=== PATIENT | female | born 1970 | race Caucasian/White ===

== ENCOUNTER → 2017-06-09 | Outpatient (CLI) | payer BC ==
[2017-06-09 09:02] LABS: Urine RBC None Seen /hpf (0 - 4)
[2017-06-09 09:22] LABS: Basophils # (auto) 0 uL; Basophils % (auto) 0.6 % (0.0-2.0); CONDITION Y; Eosinophils # (auto) 0 uL; Eosinophils % (auto) 0.4 % (0.0-7.0); Hematocrit 40.2 % (36.0-46.0); Hemoglobin 13.3 g/dL (12.2-16.2); Lymphocytes # (auto) 1.8 uL; Lymphocytes % (auto) 33.8 % (10.0-50.0); Mean Corpuscular Hemoglobin 28.5 pg (28.0-32.0); Mean Corpuscular Volume 86.2 fL (80.0-100.0); Mean Platelet Volume 9.8 fL (7.4-10.4); Monocytes # (auto) 0.4 uL; Neutrophils % (auto) 57.2 % (37.0-80.0); Platelet Count (auto) 343 10^3/uL (140-450); Red Cell Distribution Width 14.2 % (11.6-16.0); White Blood Cell 5.2 10^3/uL (4.4-10.8)
[2017-06-09 09:38] LABS: Bilirubin, Total 0.2 mg/dL (0.2-1.0); Total Protein 7.6 g/dL (6.4-8.2); Urine Bilirubin Negative (Negative); Urine Blood Negative /uL (Negative); Urine Color Colorless (Yellow); Urine Glucose 2+ mg/dL (Normal); Urine Ketone Negative (Negative); Urine Nitrite Negative (Negative); Urine Squamous Epithelial Cell FEW /hpf (<5); Urine Urobilinogen Normal (Negative); Urine pH 6.5 (5.0-8.0)
== END | disposition home or self-care (01) ==
LOC: LAB 08:18
DX: I10 Essential (primary) hypertension (principal); E10.9 Type 1 diabetes mellitus without complications; E78.00 Pure hypercholesterolemia, unspecified; E03.9 Hypothyroidism, unspecified; D64.9 Anemia, unspecified
CPT/HCPCS: 36415; 80053; 80061; 81001; 82043; 83036; 84443; 85025

== ENCOUNTER → 2019-02-26 | Outpatient (CLI) | payer BC ==
[2019-02-26 13:08] LABS: Basophils # (auto) 0 uL; Basophils % (auto) 0.4 % (0.0-2.0); Eosinophils # (auto) 0 uL; Eosinophils % (auto) 0.2 % (0.0-7.0); Hematocrit 46.7 % (36.0-46.0); Hemoglobin 15.4 g/dL (12.2-16.2); Lymphocytes # (auto) 1.5 uL; Lymphocytes % (auto) 18.3 % (10.0-50.0); Mean Corpuscular Hemoglobin 28.8 pg (28.0-32.0); Mean Corpuscular Volume 87.2 fL (80.0-100.0); Monocytes # (auto) 0.8 uL; Monocytes % (auto) 9.3 % (0.0-12.0); Neutrophils # (auto) 5.9 uL; Neutrophils % (auto) 71.8 % (37.0-80.0); Nucleated Red Blood Cells % 0.1 %; Platelet Count (auto) 273 10^3/uL (140-450); Red Blood Cells 5.36 10^6/uL (4.0-5.20); Red Cell Distribution Width 13.7 % (11.8-14.3); White Blood Cell 8.2 10^3/uL (4.4-10.8)
[2019-02-26 14:26] LABS: Potassium 3.6 mmol/L (3.5-5.1)
[2019-02-26 14:27] LABS: Albumin 4.2 g/dL (3.4-5.0); BUN/Creatinine Ratio 16.5; Bilirubin, Total 0.4 mg/dL (0.2-1.0); Calcium 9.6 mg/dL (8.5-10.1)
[2019-02-26 15:45] LABS: Urine WBC None Seen /hpf (0 - 5)
[2019-02-26 15:51] LABS: Urine Bacteria FEW /hpf (None Seen); Urine Blood Negative /uL (Negative)
== END | disposition home or self-care (01) ==
LOC: LAB 12:43
PROVIDERS: ATTEND Physician Assistant
DX: E11.21 Type 2 diabetes mellitus with diabetic nephropathy (principal); E11.22 Type 2 diabetes mellitus with diabetic chronic kidney disease; N18.3 Chronic kidney disease, stage 3 (moderate); E78.49 Other hyperlipidemia; E55.9 Vitamin D deficiency, unspecified
CPT/HCPCS: 36415; 80053; 80061; 81001; 82306; 83036; 85025

== ENCOUNTER → 2019-03-14 | Outpatient (CLI) | payer BC ==
[~2019-03-14] VITALS: Ht 167.6 cm; Wt 73.5 kg
[~2019-03-14] MED LIST: ADENOSINE 62 MG in GIVE UN-DILUTED 0 ML IV STA
== END | disposition home or self-care (01) ==
LOC: XY 08:09
PROVIDERS: ATTEND Internal Medicine
DX: I10 Essential (primary) hypertension (principal); E11.9 Type 2 diabetes mellitus without complications; E78.5 Hyperlipidemia, unspecified; E78.1 Pure hyperglyceridemia
CPT/HCPCS: 78452; 93017; A9500; J0153

== ENCOUNTER → 2019-03-15 | Outpatient (CLI) | payer BC | END | disposition home or self-care (01) | LOC: XYW 08:15 | PROVIDERS: ATTEND Internal Medicine | DX: R07.89 Other chest pain (principal) | CPT/HCPCS: 93306 ==

== ENCOUNTER → 2019-04-26 | Day surgery (SDC) | payer BC ==
[2019-04-24 12:20] LABS: Basophils # (auto) 0.1 uL; Basophils % (auto) 0.8 % (0.0-2.0); Eosinophils # (auto) 0 uL; Eosinophils % (auto) 0.5 % (0.0-7.0); Hematocrit 44.5 % (36.0-46.0); Hemoglobin 14.9 g/dL (12.2-16.2); Lymphocytes # (auto) 1.6 uL; Lymphocytes % (auto) 24.2 % (10.0-50.0); Mean Corpuscular Hgb Conc. 33.5 g/dL (32.0-36.0); Mean Corpuscular Volume 86.6 fL (80.0-100.0); Monocytes # (auto) 0.5 uL; Monocytes % (auto) 7.5 % (0.0-12.0); Neutrophils # (auto) 4.4 uL; Platelet Count (auto) 225 10^3/uL (140-450); Red Blood Cells 5.14 10^6/uL (4.0-5.20); Red Cell Distribution Width 14.9 % (11.8-14.3); White Blood Cell 6.6 10^3/uL (4.4-10.8)
[2019-04-24 12:53] LABS: INR < 0.93 (0.9-1.15); Partial Thromboplastin Time 24.2 sec (23.64-32.05)
[2019-04-24 13:23] LABS: Albumin 4.2 g/dL (3.4-5.0); Potassium 4.3 mmol/L (3.5-5.1)
[2019-04-24 13:26] LABS: BUN/Creatinine Ratio 16.7; Bilirubin, Total 0.4 mg/dL (0.2-1.0); Total Protein 8.1 g/dL (6.4-8.2)
[~2019-04-26] VITALS: Ht 167.6 cm; Wt 76.2 kg
[~2019-04-26] MED LIST changes: -ADENOSINE 62 MG in GIVE UN-DILUTED 0 ML IV STA; +ANGIOMAX 250 MG VIAL IV ONE; +ASPI-404 PO; +HEPARIN SODIUM (PORCINE) 5000 UNITS/ML 1ML VIAL ONE; +HYDR12.56 PO; +INSLANTI SC; +IOHEXOL 350 MG/ML 100ML IJ ONE; +LIDOCAINE 2%HCL (LOCAL ANESTH.) INJ 20ML MDV ONE; +LISI40TA PO; +METF-370 PO; +METO-169 PO; +MIDAZOLAM HCL 1MG/1ML-2 ML VIAL ONE; +RANO500T2 PO; +ROSU20TA14 PO; +SODIUM CHL 0.9% 0 ML ONE; +VERAPAMIL 2.5MG/ML INJ 2ML VIAL IV ONE; +fentaNYL CITRATE 100 MCG/2 ML VL ONE
== END | disposition home or self-care (01) ==
LOC: CATH 07:53
PROVIDERS: ATTEND Internal Medicine
DX: I20.8 Other forms of angina pectoris (principal); I12.9 Hypertensive chronic kidney disease with stage 1 through stage 4 chronic kidney disease, or unspecified chronic kidney disease; E11.22 Type 2 diabetes mellitus with diabetic chronic kidney disease; N18.3 Chronic kidney disease, stage 3 (moderate); E05.80 Other thyrotoxicosis without thyrotoxic crisis or storm; E66.3 Overweight; E78.5 Hyperlipidemia, unspecified; Z79.899 Other long term (current) drug therapy; Z88.2 Allergy status to sulfonamides; Z88.8 Allergy status to other drugs, medicaments and biological substances; Z79.84 Long term (current) use of oral hypoglycemic drugs; Z79.82 Long term (current) use of aspirin; Z98.890 Other specified postprocedural states; Z68.29 Body mass index [BMI] 29.0-29.9, adult
CPT/HCPCS: 36415; 80053; 84702; 85025; 85610; 85730; 93458; C1769; C1887; C1894; J1644; J2250; J3010; J7030; Q9967; 99152

== ENCOUNTER → 2019-11-22 | Outpatient (CLI) | payer BC ==
[~2019-11-22] MED LIST changes: -ANGIOMAX 250 MG VIAL IV ONE; -HEPARIN SODIUM (PORCINE) 5000 UNITS/ML 1ML VIAL ONE; -IOHEXOL 350 MG/ML 100ML IJ ONE; -LIDOCAINE 2%HCL (LOCAL ANESTH.) INJ 20ML MDV ONE; -MIDAZOLAM HCL 1MG/1ML-2 ML VIAL ONE; -SODIUM CHL 0.9% 0 ML ONE; -VERAPAMIL 2.5MG/ML INJ 2ML VIAL IV ONE; -fentaNYL CITRATE 100 MCG/2 ML VL ONE
[2019-11-22 12:53] LABS: Potassium 3.7 mmol/L (3.5-5.1)
[2019-11-22 13:01] LABS: BUN/Creatinine Ratio 25.3; Bilirubin, Total 0.3 mg/dL (0.2-1.0); Calcium 9.8 mg/dL (8.5-10.1); Total Protein 7.7 g/dL (6.4-8.2)
== END | disposition home or self-care (01) ==
LOC: LAB 10:59
DX: E10.65 Type 1 diabetes mellitus with hyperglycemia (principal)
CPT/HCPCS: 36415; 80053; 80061; 82043; 83036

== ENCOUNTER 2024-03-26 16:59 | Inpatient (IN) | payer BC ==
[~2024-03-26] VITALS: Ht 167.6 cm; Wt 78.0 kg
[~2024-03-26 16:59] MED LIST changes: -ASPI-404 PO; +ASPI-543 PO; -HYDR12.56 PO; +HYDR12.59 PO; -LISI40TA PO; +LISI40TA16 PO; -METO-169 PO; +METO-289 PO
[2024-03-26 18:48] LABS: Basophils # (auto) 0 10 ^3/uL (0-0.2); Basophils % (auto) 0.1 % (0.0-2.0); Eosinophils # (auto) 0 10 ^3/uL (0-0.8); Eosinophils % (auto) 0.2 % (0.0-7.0); Hematocrit 43.4 % (36.0-46.0); Hemoglobin 14.4 g/dL (12.2-16.2); Lymphocytes # (auto) 1.6 10 ^3/uL (0.4-5.4); Lymphocytes % (auto) 30.5 % (10.0-50.0); Mean Corpuscular Hgb Conc. 33.1 g/dL (32.0-36.0); Mean Corpuscular Volume 84.7 fL (80.0-100.0); Monocytes # (auto) 0.4 10 ^3/uL (0-1.3); Monocytes % (auto) 8.5 % (0.0-12.0); Neutrophils # (auto) 3.2 10 ^3/uL (1.6-8.6); Neutrophils % (auto) 60.7 % (37.0-80.0); Nucleated Red Blood Cells % 0.2 %; Red Blood Cells 5.13 10^6/uL (4.0-5.20); Red Cell Distribution Width 14.6 % (11.8-14.3); White Blood Cell 5.2 10^3/uL (4.4-10.8)
[2024-03-26 18:53] LABS: Chloride 93 mmol/L (98-107); Potassium 4.5 mmol/L (3.5-5.1); Sodium 131 mmol/L (136-145)
[2024-03-26 18:54] LABS: Anion Gap 7 (5-15); Carbon Dioxide 31 mmol/L (20-30)
[2024-03-26] MEDS: MECLIZINE HCL 25 MG TAB PO ONE (18:56)
[2024-03-26 18:59] LABS: Glucose 213 mg/dL (74-106)
[2024-03-26 19:00] LABS: BUN/Creatinine Ratio 11.8 (10.0-20.0); Blood Urea Nitrogen 30 mg/dL (9-23)
[2024-03-26 19:07] LABS: Calcium 13.6 mg/dL (8.5-10.1)
[2024-03-26 19:19] LABS: Urine Bacteria None Seen /hpf (None Seen)
[2024-03-26 19:41] LABS: Urine Blood Negative /uL (Negative); Urine Clarity Clear (Clear); Urine Color Colorless (Yellow); Urine Protein, UAD Negative (Negative); Urine Specific Gravity 1.006 (1.001-1.035); Urine Urobilinogen Normal (Negative); Urine WBC 4 /hpf (0 - 5); Urine pH 7.5 (5.0-9.0)
[2024-03-26 21:19] LABS: Albumin 5.2 g/dL (3.2-4.8); Bilirubin, Direct 0.1 mg/dL (<0.3)
[2024-03-26 21:20] LABS: Bilirubin, Total 0.4 mg/dL (0.2-1.0); Total Protein 7.9 g/dL (5.7-8.2)
[2024-03-26] MEDS ORDERED: DOCUSATE SOD 100 MG CAP PO PRN (21:30)
[2024-03-26] MEDS ORDERED: MORPHINE SULFATE INJ 2 MG/ml SYRG IV PRN (21:30)
[2024-03-26] MEDS ORDERED: ACETAMINOPHEN 325 MG TAB PO PRN (21:30)
[2024-03-26] MEDS ORDERED: DEXTROSE (50%) 50ML SYRG IV PRN (21:30)
[2024-03-26] MEDS ORDERED: ONDANSETRON HCL 4 MG/2 ML VIAL IV PRN (21:30)
[2024-03-26] MEDS: InsuLIN REG 1unit/0.01ml Soln (100units/ml) SC SCH (22:00)
[2024-03-26] MEDS: SODIUM CHLOR 0.9% PF (SALINE LOCK) 10ML VIAL/SYR IV SCH (22:00)
[2024-03-26] MEDS: ACCU-CHEK COMFORT CURVE STRIP VI SCH (22:00)
[2024-03-26] MEDS: SODIUM CHLORIDE 0.9% 1,000 ML IV ONE (23:11)
[2024-03-26] MEDS: FUROSEMIDE 20 MG/2 ML VIAL IV ONE (23:53)
[2024-03-26] MEDS: cefTRIAXone 1GM/50ML D5W 50 ML IV ONE (23:53)
[2024-03-26] MEDS: SODIUM CHLORIDE 0.9% 1,000 ML IV SCH (23:55)
[2024-03-27] VITALS (7 sets, daily range): BP systolic 97–152; BP diastolic 50–70; PULSE 66–91; RESP 14–18; TEMP 97.6–98.3; O2SAT 92–98
[2024-03-27] MEDS: InsuLIN REG 1unit/0.01ml Soln (100units/ml) SC SCH (06:30)
[2024-03-27 07:00] LABS: Basophils # (auto) 0 10 ^3/uL (0-0.2); Basophils % (auto) 0.3 % (0.0-2.0); Eosinophils # (auto) 0 10 ^3/uL (0-0.8); Eosinophils % (auto) 0.1 % (0.0-7.0); Hematocrit 38.1 % (36.0-46.0); Hemoglobin 12.9 g/dL (12.2-16.2); Lymphocytes # (auto) 1.5 10 ^3/uL (0.4-5.4); Lymphocytes % (auto) 31.5 % (10.0-50.0); Mean Corpuscular Hemoglobin 28.5 pg (28.0-32.0); Mean Corpuscular Hgb Conc. 33.9 g/dL (32.0-36.0); Mean Corpuscular Volume 84.1 fL (80.0-100.0); Monocytes # (auto) 0.5 10 ^3/uL (0-1.3); Neutrophils # (auto) 2.7 10 ^3/uL (1.6-8.6); Neutrophils % (auto) 57.1 % (37.0-80.0); Red Blood Cells 4.53 10^6/uL (4.0-5.20); Red Cell Distribution Width 13.9 % (11.8-14.3); White Blood Cell 4.7 10^3/uL (4.4-10.8)
[2024-03-27 07:23] LABS: Albumin 4.3 g/dL (3.2-4.8); Alkaline Phosphatase 76 U/L (46-116); Anion Gap 8 (5-15); BUN/Creatinine Ratio 14.2 (10.0-20.0); Blood Urea Nitrogen 29 mg/dL (9-23); Calcium 11.4 mg/dL (8.5-10.1); Carbon Dioxide 25 mmol/L (20-30); Chloride 101 mmol/L (98-107); Glucose 229 mg/dL (74-106); Potassium 3.8 mmol/L (3.5-5.1); Sodium 134 mmol/L (136-145)
[2024-03-27 07:24] LABS: Aspartate Aminotransferase < 8 U/L (13-40); Bilirubin, Total 0.3 mg/dL (0.2-1.0)
[2024-03-27 07:26] LABS: Alanine Aminotransferase < 9 U/L (7-40)
[2024-03-27] MEDS: cefTRIAXone 1GM/50ML D5W 50 ML IV SCH (09:56)
[2024-03-27] MEDS ORDERED: LORazepam 2MG/ML-1ML VIAL IV PRN (23:45)
[2024-03-28] VITALS (7 sets, daily range): BP systolic 112–172; BP diastolic 54–67; PULSE 84–91; RESP 16–20; TEMP 97.5–98.4; O2SAT 95–99
[2024-03-28 07:17] LABS: Anion Gap 5 (5-15); Carbon Dioxide 26 mmol/L (20-30); Chloride 109 mmol/L (98-107); Potassium 3.9 mmol/L (3.5-5.1); Sodium 140 mmol/L (136-145)
[2024-03-28 07:23] LABS: BUN/Creatinine Ratio 16.9 (10.0-20.0); Blood Urea Nitrogen 23 mg/dL (9-23); Glucose 188 mg/dL (74-106)
[2024-03-28 08:06] LABS: Free Thyroxine Index 2.6 (1.2-4.9); Thyroxine (T4) 9.6 ug/dL (4.5-12.0)
[2024-03-28 08:06] LABS: Immunoglobulin A 219 mg/dL (87-352); Immunoglobulin G, Serum 1029 mg/dL (586-1602); Immunoglobulin M 79 mg/dL (26-217)
[2024-03-28 12:07] LABS: Albumin 3.4 g/dL (2.9-4.4); Alpha-1-Globulin 0.2 g/dL (0.0-0.4); Alpha-2-Globulin 0.8 g/dL (0.4-1.0); Gamma Globulin 1.1 g/dL (0.4-1.8); Globulin Total 3.3 g/dL (2.2-3.9); Protein Total Serum 6.7 g/dL (6.0-8.5)
[2024-03-28] MEDS: SODIUM CHLORIDE 0.9% 1,000 ML IV SCH (13:00)
[2024-03-29 00:32] VITALS: BP 149/77; PULSE 89; RESP 20; TEMP 98.1; O2SAT 97
[2024-03-29 05:00] VITALS: BP 121/63; PULSE 79; RESP 18; TEMP 98.1; O2SAT 98
[2024-03-29 06:51] LABS: Chloride 112 mmol/L (98-107); Potassium 3.9 mmol/L (3.5-5.1); Sodium 141 mmol/L (136-145)
[2024-03-29 06:52] LABS: Anion Gap 6 (5-15); Calcium 10.1 mg/dL (8.7-10.4); Carbon Dioxide 23 mmol/L (20-30)
[2024-03-29 06:57] LABS: BUN/Creatinine Ratio 17.5 (10.0-20.0); Blood Urea Nitrogen 18 mg/dL (9-23); Glucose 180 mg/dL (74-106)
[2024-03-29 08:00] VITALS: PULSE 84; RESP 18; O2SAT 96
[2024-03-29 08:06] LABS: AFP Serum Tumor Marker <1.8 ng/mL (0.0-9.2); Cancer Antigen (CA) 125 8.5 U/mL (0.0-38.1)
[2024-03-29 09:00] VITALS: BP 129/85; PULSE 89; RESP 18; TEMP 97.8; O2SAT 99
[2024-03-29] MEDS ORDERED: AUG875T PO (12:21)
[2024-03-29 13:00] VITALS: BP 161/74; PULSE 100; RESP 18; TEMP 97.6; O2SAT 97
[2024-03-29 15:33] VITALS: BP 144/77; PULSE 100; RESP 18; TEMP 97.6; O2SAT 97
== END 2024-03-29 16:00 | disposition home or self-care (01) | DRG 153 ==
LOC: EEVIPCON 16:59 → ER 16:59 → OVERFLOW 21:28 → EAST 03-27 03:51
PROVIDERS: ADMIT Nurse Practitioner Family; ATTEND Internal Medicine Geriatric Medicine
DX: H70.001 Acute mastoiditis without complications, right ear (principal); N17.9 Acute kidney failure, unspecified; N39.0 Urinary tract infection, site not specified; E83.52 Hypercalcemia; I12.9 Hypertensive chronic kidney disease with stage 1 through stage 4 chronic kidney disease, or unspecified chronic kidney disease; E11.22 Type 2 diabetes mellitus with diabetic chronic kidney disease; N18.2 Chronic kidney disease, stage 2 (mild); K52.9 Noninfective gastroenteritis and colitis, unspecified; E78.5 Hyperlipidemia, unspecified; K80.20 Calculus of gallbladder without cholecystitis without obstruction; E04.1 Nontoxic single thyroid nodule; E86.9 Volume depletion, unspecified; Z88.6 Allergy status to analgesic agent; Z92.3 Personal history of irradiation; Z82.49 Family history of ischemic heart disease and other diseases of the circulatory system; Z83.3 Family history of diabetes mellitus; Z79.4 Long term (current) use of insulin
CPT/HCPCS: 36415; 70450; 70551; 71046; 71250; 74176; 76536; 78306; 80048; 80053; 80076; 81001; 82105; 82306; 82378; 82784; 82962; 83036; 83880; 83970; 84100; 84155; 84165; 84443; 84484; 85025; 86301; 86304; 86334; 93005; 96365; 96375; G0378; J1815

== ENCOUNTER → 2024-04-25 | Outpatient (CLI) | payer BC ==
[~2024-04-25] MED LIST changes: +AUG875T PO
== END | disposition home or self-care (01) ==
LOC: US 10:43
PROVIDERS: ATTEND Internal Medicine
DX: E04.1 Nontoxic single thyroid nodule (principal); Z98.891 History of uterine scar from previous surgery; Z82.49 Family history of ischemic heart disease and other diseases of the circulatory system
CPT/HCPCS: 10005; 76942

== ENCOUNTER → 2024-05-13 | Outpatient (CLI) | payer BC ==
[2024-05-13 15:38] LABS: Alanine Aminotransferase 36 U/L (7-40); Albumin 4.7 g/dL (3.2-4.8); Alkaline Phosphatase 89 U/L (46-116); Anion Gap 4 (5-15); Aspartate Aminotransferase 22 U/L (13-40); BUN/Creatinine Ratio 31.8 (10.0-20.0); Blood Urea Nitrogen 34 mg/dL (9-23); Calcium 10.5 mg/dL (8.7-10.4); Carbon Dioxide 32 mmol/L (20-30); Chloride 100 mmol/L (98-107); Glucose 146 mg/dL (74-106); Potassium 3.8 mmol/L (3.5-5.1); Sodium 136 mmol/L (136-145)
[2024-05-13 15:39] LABS: Bilirubin, Total 0.4 mg/dL (0.2-1.0); Total Protein 7.2 g/dL (5.7-8.2)
== END | disposition home or self-care (01) ==
LOC: LAB 15:01
PROVIDERS: ATTEND Internal Medicine
DX: E11.9 Type 2 diabetes mellitus without complications (principal); I10 Essential (primary) hypertension; E03.9 Hypothyroidism, unspecified
CPT/HCPCS: 36415; 80053; 83970

== ENCOUNTER → 2024-08-14 | Outpatient (CLI) | payer BC ==
[2024-08-14 13:17] LABS: Alanine Aminotransferase 29 U/L (7-40); Alkaline Phosphatase 83 U/L (46-116); Calcium 10.5 mg/dL (8.7-10.4); Chloride 99 mmol/L (98-107); Triglycerides 126 mg/dL (< 150)
[2024-08-14 13:18] LABS: Albumin 4.5 g/dL (3.2-4.8); Anion Gap 4 (5-15); Aspartate Aminotransferase 19 U/L (13-40); BUN/Creatinine Ratio 22.3 (10.0-20.0); Bilirubin, Total 0.2 mg/dL (0.2-1.0); Blood Urea Nitrogen 25 mg/dL (9-23); Carbon Dioxide 32 mmol/L (20-31); Cholesterol 164 mg/dL (< 200); Glucose 75 mg/dL (74-106); HDL Cholesterol 69 mg/dL (40-59); LDL Cholesterol 77 mg/dL (< 100); Sodium 135 mmol/L (136-145); Total Protein 7.3 g/dL (5.7-8.2)
[2024-08-14 14:05] LABS: Creatinine, Urine 10.72 mg/dL (30.0-125.0)
[2024-08-14 14:08] LABS: Micro Albumin < 3.0 mg/L (<30.0)
== END | disposition home or self-care (01) ==
LOC: LAB 12:06
PROVIDERS: ATTEND Internal Medicine
DX: I10 Essential (primary) hypertension (principal); E11.9 Type 2 diabetes mellitus without complications; E04.1 Nontoxic single thyroid nodule; E83.52 Hypercalcemia
CPT/HCPCS: 36415; 80053; 80061; 82043; 82570; 82607; 83036; 84443

== ENCOUNTER 2024-11-30 16:04 | Inpatient (IN) | payer BC ==
[~2024-11-30] VITALS: Ht 167.6 cm; Wt 83.1 kg
--- NOTE | 2024-11-30 16:43 | ED.PDOC ---
Eye-HPI HPI Comments Initial Vital Signs: Temp : 97.9F BP: 189/91 HR: 96 RR: 16 SpO2: 98% Past Medical History: DM, HLD, HTN, CKF, Mastoiditis, Acoustic Neuroma Past Surgical History: Rt sided brain surgery, Rt ear surgery Social History: Denies smoking, ETOH, or drug use. Medications: No medications. Allergies: Acetaminophen, Hydrocodone, Sulfa Antibiotics HPI: Poor Historian. 53-year-old female presents to emergency department for acute and chronic headache worse in the last two days. She points over her right side of her headache around her right ear. She also noticed some right ear pain in some right ear discharge. She has history of mastoiditis in the past and is concerned that this might be a recurrent condition. She also has history of acoustic neuroma status post craniotomy many years ago. Patient had some mild lightheadedness. Denies any other acute symptoms. REVIEW OF SYSTEMS: CONSTITUTIONAL: Denies acute: fever, diaphoresis, chills, generalized weakness. HEAD: Denies acute: photophobia Eyes: Denies acute: Double vision, vision loss, eye pain, eye discharge. EARS: Denies acute: tinnitus, hearing loss, THROAT: Denies acute: sore throat, swelling, difficulty swallowing , pain with swallo wing, change in voice. NECK: Denies acute: neck pain, neck swelling, stiff neck. HEART: Denies acute : chest pain, palpitations, LUNGS: Denies acute: SOB, wheezing, cough, hemoptysis ABDOMEN: Denies acute: abdominal pain, Nausea, Vomiting, diarrhea, melena , hematemesis, hematochezia SKIN: Denies acute: rash, redness, lesions, itchiness. EXTREMITIES: Denies acute: calf pain, numbness, tingling, weakness, denies pain in extremity. Denies acute: Low back pain. Neuro: Denies acute: focal neurological deficit, motor or sensory focal neurological deficit, tremors, seizure like activity, confusion, change in mental status, loss of bowel or bladder function, cauda equina like symptoms. : Denies acute: dysuria, hematuria, flank pain, increase in urinary frequency. PSYCH: Denies acute: hallucination, suicidal ideation, homicidal ideation. FEMALE: Denies acute: abnormal vaginal bleeding, foul odor, unusual discharge. PHYSICAL EXAM: General: no acute distress, awake and alert. Head: normocephalic, atraumatic. Neck: supple, trachea is midline, no swelling. Throat: Normal phonation. Eyes:, no erythema, no purulent discharge, no proptosis, no icterus. Heart: regular rate, regular rhythm, no significant murmur appreciated. Lungs: no apparent respiratory distress, Able to speak in full sentences. No wheezing, no rhonchi, no crackles. No stridors Clear to auscultation bilaterally. Abdomen: non tender to palpation, non distended, soft, no guarding, no rebound, + bowel sounds. Neuro: Awake, Alert, oriented to name, self, situation, follows commands GCS=15. Speech is normal. Skin: no petechia, no purpura, no cyanosis, non-pale, not jaundice. Lower extremities: --no - Pitting edema no deformity, no focal swelling, no calf TTP. Makes eye contact. moves all four extremities. Face: no apparent facial droop. Ambulating in the ED independently. Ears: Left normal appearing TM . Right tympanic membrane appears moist with possible discharge. Palpation of bilateral mastoid that is not reveal tenderness to palpation however there is some mild swelling behind the earlobe on the right ear. The area is somewhat tender to palpation. PERRLA, EOM-I CN 2-12 are grossly intact, No nystagmus. No nuchal rigidity, Kernig's sign, Brudzinski's sign, no meningeal signs. ED COURSE: Chief Complaint: Headache Time Seen by MD: 16:42 Primary Care Provider: RAYMOND Reviewed Notes: Medications, Allergies Allergies: Coded Allergies: Acetaminophen (Verified Allergy, Unknown, 03/14/19) Hydrocodone (Verified Allergy, Unknown, 04/25/19) Sulfa Antibiotics (Verified Allergy, Unknown, 03/26/24) Home Meds Active Scripts Amoxicillin & Pot Clavulanate (AUGMENTIN TABLET) 875 Mg Tb, 875 MG PO BID for 10 Days, #20 TAB Prov:CRYSTAL VALLE MD 03/29/24 Reported Medications Ranolazine (Ranexa) 500 Mg Tab, 500 MG PO BID, TAB 04/25/19 Metoprolol Succinate (Metoprolol Succinate Er) 50 Mg Tab, 50 MG PO BID for 30 Days, MG 04/25/19 Metformin Hydrochloride (Metformin Hcl) 500 Mg Tab, 500 MG PO IBID for 30 Days, MG 04/25/19 Lisinopril (Lisinopril) 40 Mg Tab, 40 MG PO QPM for 30 Days, MG 04/25/19 Insulin Glargine (Lantus) 100 Unit/Ml Inj, 20 UNIT SC QPM, INJ 04/25/19 Insulin Glargine (Lantus) 100 Unit/Ml Inj, 30 UNIT SC QAM, INJ 04/25/19 Hydrochlorothiazide (Hydrochlorothiazide) 12.5 Mg Cap, 12.5 MG PO BID for 30 Days, MG 04/25/19 Rosuvastatin Calcium (Crestor) 20 Mg Tab, 1 TAB PO QPM, #30 TAB 5 Refills 04/25/19 Aspirin (Aspir-Low) 81 Mg Tab, 81 MG PO DAILY for 30 Days, MG 04/25/19 Information Source: Patient Mode of Arrival: Ambulatory Was a procedure done? Was a procedure done?: No EENT DIFF Eye: N/A Ear: Abrasion, Cerumen Impaction, Foreign Body, Otitis Externa, Barotrauma, Otitis Media, Perforation, Dental, Pharyngitis, Sinusitis, TMJ Syndrome, Other (Mastoiditis, neoplasm,) X-Ray, Labs, Meds, VS Vital Signs Date Time Temp Pulse Resp B/P (MAP) Pulse Ox O2 Delivery O2 Flow Rate FiO2 11/30/24 20:43 97.7 95 18 200/86 (124) 98 97.7 11/30/24 20:36 200/86 11/30/24 17:57 98.2 90 20 170/82 (111) 97 98.2 11/30/24 17:56 170/82 11/30/24 17:19 Room Air* 0 21 11/30/24 17:18 94 20 182/76 (111) 96 11/30/24 16:59 182/76 11/30/24 16:25 97.9 96 16 189/91 (123) 98 Lab Test 11/30/24 20:17 11/30/24 20:06 11/30/24 16:50 Range/Units POC Glucose 391 H 70-106 mg/dl Sodium Level 137 135 L 136-145 mmol/L Potassium Level 4.3 4.5 3.5-5.1 mmol/L Chloride Level 99 96 L 98-107 mmol/L Carbon Dioxide Level 28 30 20-31 mmol/L Anion Gap 10 9 5-15 Blood Urea Nitrogen 43 H 43 H 9-23 mg/dL Creatinine 1.88 H 2.10 H 0.550-1.02 mg/dL Glomerular Filtration Rate Calc 31 27 >90 mL/min BUN/Creatinine Ratio 22.9 H 20.5 H 10.0-20.0 Serum Glucose 368 H 436 *H 74-106 mg/dL Calcium Level 10.7 H 10.9 H 8.7-10.4 mg/dL Total Bilirubin 0.5 0.4 0.2-1.0 mg/dL Aspartate Amino Transferase (AST) 15 18 13-40 U/L Alanine Aminotransferase (ALT) 30 32 7-40 U/L Alkaline Phosphatase 133 H 136 H 46-116 U/L Total Protein 7.9 8.0 5.7-8.2 g/dL Albumin 5.2 H 5.3 H 3.2-4.8 g/dL White Blood Count 5.2 4.4-10.8 10^3/uL Red Blood Count 4.62 4.0-5.20 10^6/uL Hemoglobin 12.9 12.2-16.2 g/dL Hematocrit 39.1 36.0-46.0 % Mean Corpuscular Volume 84.5 80.0-100.0 fL Mean Corpuscular Hemoglobin 28.0 28.0-32.0 pg Mean Corpuscular Hemoglobin Concent 33.1 32.0-36.0 g/dL Red Cell Distribution Width 14.7 H 11.8-14.3 % Platelet Count 248 140-450 10^3/uL Mean Platelet Volume 9.5 6.9-10.8 fL Neutrophils (%) (Auto) 62.1 37.0-80.0 % Lymphocytes (%) (Auto) 25.7 10.0-50.0 % Monocytes (%) (Auto) 12.1 H 0.0-12.0 % Eosinophils (%) (Auto) 0.0 0.0-7.0 % Basophils (%) (Auto) 0.1 0.0-2.0 % Neutrophils # (Auto) 3.3 1.6-8.6 10 ^3/uL Lymphocytes # (Auto) 1.3 0.4-5.4 10 ^3/uL Monocytes # (Auto) 0.6 0-1.3 10 ^3/uL Eosinophils # (Auto) 0 0-0.8 10 ^3/uL Basophils # (Auto) 0 0-0.2 10 ^3/uL Nucleated Red Blood Cells 0.0 % Erythrocyte Sedimentation Rate 12 0-20 mm/hr Lactic Acid Level 1.7 0.4-2.0 mmol/L C-Reactive Protein High Sensitivity 0.26 <1.0 mg/dL Current Medications Medications (Trade) Dose Ordered Sig/Dinorah Route Start Time Stop Time Status Last Admin Nitroglycerin (Ntrostat Sublingual) 0.4 mg ONCE ONCE SL 11/30/24 16:45 11/30/24 16:46 DC 11/30/24 16:59 Piperacillin Sod/ Tazobactam Sod 100 ml @ 33.333 mls/ hr ONCE ONCE IV 11/30/24 16:45 11/30/24 19:44 DC 11/30/24 16:59 Sodium Chloride 1,000 ml @ 1,000 mls/hr Q1H ONCE IV 11/30/24 19:00 11/30/24 19:59 DC 11/30/24 20:27 Hydralazine HCl (Apresoline Injection) 10 mg Q6HP PRN IV 11/30/24 19:30 11/30/24 20:36 Diagnostic Test (Pha) (Accu-Chek Comfort Curve T) 1 strip IQ4HR 11/30/24 20:00 11/30/24 20:25 Insulin Human Regular (InsuLIN R) IQ4HR SC 11/30/24 20:00 11/30/24 20:26 [place] [id number] Ph: [phone] DIAGNOSTIC IMAGING Diagnostic Imaging Report : [id number] Signed PATIENT: ROMEO CHOWDARY ACCT: [id number] UNIT: [id number] : 1970 LOC: ER ROOM / BED: / AGE / SEX: 53 / F ADM STATUS: REG ER SERVICE 1630 ORDERING PHYSICIAN: HOMA ROWAN DO PROCEDURE(s): HDWCT - HEAD CONTRAST ONLY REASON: R ear pain, discharge, headache ORDER NUMBER(s): [id number], ACCESSION NUMBER(s): [id number] EXAM: CT HEAD CONTRAST ONLY INDICATION: R ear pain, discharge, headache TECHNIQUE: CT of the head without intravenous contrast. Radiation Dose Information: CT Dose: CTDI volume is 55.75 mGy. Dose-length pro duct is 987.22 mGy*cm Omnipaque 300: 50 mL The dose indicators for CT are the volume Computed Tomography (CT) Dose Index (CTDIvol) and the Dose Length Product (DLP), and are measured in units of mGy and mGy-cm, respectively. These indicators are not patient dose, but values generated from the CT scanner acquisition factors. The report includes radiation exposure data for exposures received during this examination. COMPARISON: CT HEAD WITHOUT CONTRAST on DOS: 03/26/24 FINDINGS: There is no evidence of acute intracranial hemorrhage, extra-axial collection, mass effect, midline shift, herniation or hydrocephalus. The ventricles, sulci and cisterns are age appropriate. The farris-white differentiation is intact. Patchy periventricular and subcortical white matter hypoattenuation is nonspecific but may be related to small vessel ischemic disease. The visualized paranasal sinuses and postop changes right mastoids with collection of gas and fluid. This appears unchanged from 03/26/2024. There appears to be closure device over the osteotomy site. Findings of air-fluid level or unchanged also from MRI 03/28/2024. The surrounding soft tissues and osseous structures are unremarkable. IMPRESSION: 1. Right mastoidectomy. Air-fluid level within surgical site. These findings are unchanged from 03/26/2024 and 03/28/2024. Correlated for expected changes in surgical site versus possible infection. ATED BY: SYL CHEW Jr., DO DICTATED DATE/TIME: 11/30/242149 SIGNED BY: SYL CHEW Jr., SIGNED DATE/TIME: 11/30/242149 CC: [place] [id number] Ph: [phone] DIAGNOSTIC IMAGING Diagnostic Imaging Report : [id number] Signed PATIENT: ROMEO CHOWDARY ACCT: [id number] UNIT: [id number] : 1970 LOC: ER ROOM / BED: / AGE / SEX: 53 / F ADM STATUS: REG ER SERVICE 02 ORDERING PHYSICIAN: HOMA ROWAN DO PROCEDURE(s): IAC W - INTERNAL AUDITORY CANAL WITH REASON: r ear pain/discharge h/o mastoiditis. ORDER NUMBER(s): [id number], ACCESSION NUMBER(s): [id number] INDICATION: r ear pain/discharge h/o mastoiditis. EXAM DATE: 11/30/2024 09:12 PM COMPARISON: 03/26/2024 TECHNIQUE: CT of the IAC without intravenous contrast. RADIATION DOSE: CTDIvol: 74.57 mGy, DLP: 880.2 mGy*cm FINDINGS: Right: Redemonstration of postsurgical changes of canal wall up mastoidectomy with air fluid level within the right mastoid area of postsurgical changes . There appears to be postsurgical changes of the right internal auditory canal with postsurgical changes of the semicircular canals and retroauricular cranioplasty. There is opacification of the remaining mastoid air cells. Partial opacification of the right middle ear. There is mucosal thickening of the external auditory canal with thickening of the right tympanic membrane. There is limited evaluation of the middle ear ossicles. There is dehiscence of the sigmoid plate. Left: The external auditory canal appears intact. The middle ear cavity is clear. The ossicular chain appears intact. The facial nerve describes a normal course. No inner ear abnormality is identified. The tegmen appears intact. The semicircular canals appear covered by bone. The mastoid air cells are well aerated and pneumatized. Minimal mucoperiosteal thickening of the left maxillary sinus with bubbly secretion within the left sphenoid sinus. No enhancing masses are visualized wi thin the partially visualized brain. IMPRESSION: Redemonstration of postsurgical changes of the right mastoid, and inner ear with air-fluid levels within the right mastoid and opacification of the remainder of the right mastoid air cells. There is interval development of partial opacification of the right middle ear. Findings are consistent with otomastoiditis. ATED BY: TRINI WOOTEN DO DICTATED DATE/TIME: 11/30/242202 SIGNED BY: TRINI WOOTEN DO SIGNED DATE/TIME: 11/30/242202 CC: Time of 1ST Reevaluation: 17:42 Reevaluation 1ST: Unchanged Patient Education/Counseling: Diagnosis, Treatment Family Education/Counseling: No Family Present Comments Patient presented with the above HPI.--ear pain/headache----workup was initiated. patient was found with the above mentioned diagnosis. the following medications were ordered: please refer to order lists of meds and tests obtained by myself Dr. Rowan. Patient ED course and VS have been stabilized. Patient has been reassessed in the ED and remained in a stable condition. Pertinent incidental findings were discussed with the patient and/or family. Patient/family voices understanding and is agreeable with plan. Patient has been observed in the ED adequate length of time to insure improvement/stability. Escalation of care considered: Consideration of escalation to observation or admission Patient was ADMITTED to the medicine team for further evaluation and treatment of their presentation. Rule out mastoiditis versus other etiologies. All the reports of any imaging studies that were ordered by myself were reviewed by myself. Departure 1 Departure Time of Disposition: 18:53 Impression: Primary Impression: Right ear pain Additional Impressions: Infection of right ear Acute renal insufficiency Hyperglycemia Mastoiditis of right side Disposition: ADMITTED INPATIENT Admit to: [facility] Condition: Guarded Discharged With: Self Critical Care Note Critical Care Time?: No Heart Score Heart Score: Heart Score Response (Comments) Value History N/A 0 EKG N/A 0 Age N/A 0 Risk Factors N/A 0 Troponin N/A 0 Total 0 I personally scribed for HOMA ROWAN DO ([email or web address]) on 11/30/24 at 16:43. Electronically submitted by Daniel Rios ([email or web address]). I personally scribed for HOMA ROWAN DO ([email or web address]) on 11/30/24 at 16:54. Electronically submitted by Daniel Rios ([email or web address]). I personally scribed for HOMA ROWAN DO ([email or web address]) on 11/30/24 at 17:20. Electronically submitted by Daniel Rios ([email or web address]). HOMA ROWAN DO Nov 30, 2024 16:43
[2024-11-30] MEDS ORDERED: VANCOMYCIN PER PHARMACY 0 MG IV SCH (16:45)
[2024-11-30] MEDS: PIPERACILLIN-TAZOB 3.375GM 100 ML IV ONE (16:59)
[2024-11-30] MEDS: NITROGLYCERIN 0.4 MG SL TAB SL ONE (16:59)
[2024-11-30 17:25] LABS: Basophils # (auto) 0 10 ^3/uL (0-0.2); Basophils % (auto) 0.1 % (0.0-2.0); Eosinophils # (auto) 0 10 ^3/uL (0-0.8); Hematocrit 39.1 % (36.0-46.0); Hemoglobin 12.9 g/dL (12.2-16.2); Lymphocytes # (auto) 1.3 10 ^3/uL (0.4-5.4); Lymphocytes % (auto) 25.7 % (10.0-50.0); Mean Corpuscular Hgb Conc. 33.1 g/dL (32.0-36.0); Mean Corpuscular Volume 84.5 fL (80.0-100.0); Monocytes # (auto) 0.6 10 ^3/uL (0-1.3); Monocytes % (auto) 12.1 % (0.0-12.0); Neutrophils # (auto) 3.3 10 ^3/uL (1.6-8.6); Neutrophils % (auto) 62.1 % (37.0-80.0); Platelet Count (auto) 248 10^3/uL (140-450); Red Blood Cells 4.62 10^6/uL (4.0-5.20); Red Cell Distribution Width 14.7 % (11.8-14.3); White Blood Cell 5.2 10^3/uL (4.4-10.8)
[2024-11-30 17:44] LABS: Alanine Aminotransferase 32 U/L (7-40); Anion Gap 9 (5-15); Aspartate Aminotransferase 18 U/L (13-40); BUN/Creatinine Ratio 20.5 (10.0-20.0); CRP High Sensitivity 0.26 mg/dL (<1.0); Carbon Dioxide 30 mmol/L (20-31); Potassium 4.5 mmol/L (3.5-5.1)
[2024-11-30 17:45] LABS: Bilirubin, Total 0.4 mg/dL (0.2-1.0)
[2024-11-30 17:47] LABS: Albumin 5.3 g/dL (3.2-4.8); Alkaline Phosphatase 136 U/L (46-116); Blood Urea Nitrogen 43 mg/dL (9-23); Calcium 10.9 mg/dL (8.7-10.4); Chloride 96 mmol/L (98-107); Sodium 135 mmol/L (136-145)
[2024-11-30 17:49] LABS: Glucose 436 mg/dL (74-106)
[2024-11-30 18:07] LABS: Erythrocyte Sedimentation Rate 12 mm/hr (0-20)
[2024-11-30] MEDS ORDERED: MORPHINE SULFATE INJ 2 MG/ml SYRG IV PRN ×2 (19:30→21:30)
[2024-11-30] MEDS ORDERED: ONDANSETRON HCL 4 MG/2 ML VIAL IV PRN (19:30)
[2024-11-30] MEDS ORDERED: DEXTROSE (50%) 50ML SYRG IV PRN (19:30)
[2024-11-30] MEDS ORDERED: DOCUSATE SOD 100 MG CAP PO PRN (19:30)
[2024-11-30] MEDS: ACCU-CHEK COMFORT CURVE STRIP VI SCH (20:25)
[2024-11-30] MEDS: InsuLIN REG 1unit/0.01ml Soln (100units/ml) SC SCH (20:26)
[2024-11-30] MEDS: SODIUM CHLORIDE 0.9% 1,000 ML IV ONE (20:27)
[2024-11-30 20:34] LABS: Alanine Aminotransferase 30 U/L (7-40); Anion Gap 10 (5-15); Aspartate Aminotransferase 15 U/L (13-40); BUN/Creatinine Ratio 22.9 (10.0-20.0); Carbon Dioxide 28 mmol/L (20-31); Chloride 99 mmol/L (98-107); Potassium 4.3 mmol/L (3.5-5.1); Sodium 137 mmol/L (136-145)
[2024-11-30 20:35] LABS: Bilirubin, Total 0.5 mg/dL (0.2-1.0); Total Protein 7.9 g/dL (5.7-8.2)
[2024-11-30] MEDS: hydrALAZINE HCL 20 MG/ML VL IV PRN (20:36)
[2024-11-30 20:46] LABS: Albumin 5.2 g/dL (3.2-4.8); Alkaline Phosphatase 133 U/L (46-116); Blood Urea Nitrogen 43 mg/dL (9-23); Calcium 10.7 mg/dL (8.7-10.4); Glucose 368 mg/dL (74-106)
--- NOTE | 2024-11-30 21:24 | DVHHP2 ---
History of Present Illness Reason for Visit: Infection of right ear History of Present Illness Patient is a 53-year-old female with multiple past medical history including DM, HLD, hypertension, CKF, and mastoiditis who presented to [facility] ED with complaint of headache for the past 2 days. Patient reports experiencing right pain with discharge, mild headedness, getting worse that prompted this visit. Patient was seen and evaluated in the ED, laboratory data shows WBC 5.2, platelets 248, sodium 135, potassium 4.5, BUN 43, creatinine 2.10, GFR 27, glucose 436, albumin 5.3, blood pressure 189/91 trending down to 148/75, heart rate 90, temperature 98.2 F, O2 saturation 97% on room air. Head CT revealing right mastoidectomy, air-fluid level within surgical site, findings unchanged from 03/26/2024-03/28/2024, correlated for expected changes in surgical site versus possible infection. Internal auditory canal biopsy CT revealing redemonstration of postsurgical changes of the right mastoid and inner ear with air-fluid levels within the right mastoid and opacification of the remainder of the right mastoid cells, there is internal development of partial opacification of the right middle ear consistent with otomastoiditis, recommending ENT evaluation. Patient was started on IV antibiotic regimen Zosyn, please see medication orders section in the computer. On my assessment, patient denies chest pain, no headache, no dizziness, no diaphoresis, no shortness of breaths, no nausea, no vomiting, no fever, no chills. Dr. Rowan will like patient to be admitted for further evaluation and medical management. Past Medical History DM, HLD, HTN, CKF, Mastoiditis, Acoustic Neuroma Past Surgical History Right sided brain surgery, Rt ear surgery Family History Reviewed, noncontributory to the management of this case. Past Social History The patient lives at home, denies smoking, alcohol or illicit drugs abuse. Review of Systems Constitutional: No: Fever, Chills, Sweats, Weakness, Malaise, Other Eyes: No: Pain, Vision change, Conjunctivae inflammation, Eyelid inflammation, Other, Redness ENT: Ear pain; No: Ear discharge, Nose pain, Nose discharge, Nose congestion, Mouth pain, Mouth swelling, Throat pain, Throat swelling, Other Respiratory: No: Cough, Dry, Shortness of breath, SOB with excertion, Wheezing, Hemoptysis, Pleuritic Pain, Sputum, Wheezing, Other Cardiovascular: No: Chest Pain, Palpitations, Orthopnea, Paroxysmal Noc. Dyspnea, Edema, Lt Headedness, Other Gastrointestinal: No: Nausea, Vomiting, Abdominal Pain, Diarrhea, Constipation, Melena, Hematochezia, Other Genitourinary: No Dysuria, No Frequency, No Incontinence, No Hematuria, No Retention, No Other Musculoskeletal: No: other, neck pain, shoulder pain, arm pain, back pain, hand pain, leg pain, foot pain Skin: No: Rash, Lesions, Jaundice, Bruising, Other Neurological: Other (Headache); No: Weakness, Numbness, Incoordination, Change in speech, Confusion, Seizures Allergies: Coded Allergies: Acetaminophen (Verified Allergy, Unknown, 03/14/19) Hydrocodone (Verified Allergy, Unknown, 04/25/19) Sulfa Antibiotics (Verified Allergy, Unknown, 03/26/24) Medications Current Medications Medications Dose Ordered Sig/Dinorah Route Start Time Stop Time Status Last Admin Dose Admin Vancomycin HCl 0 ml @ 0 mls/hr UD IV 11/30/24 16:45 UNV Aspirin 81 mg DAILY PO 12/01/24 10:00 Ibuprofen 600 mg Q6HP PRN PO 11/30/24 19:30 Atorvastatin Calcium 10 mg HS PO 11/30/24 22:00 Metoprolol Tartrate 50 mg BID PO 11/30/24 22:00 Hydralazine HCl 10 mg Q6HP PRN IV 11/30/24 19:30 11/30/24 20:36 10 MG Diagnostic Test (Pha) 1 strip IQ4HR 11/30/24 20:00 11/30/24 20:25 1 STRIP Insulin Human Regular IQ4HR SC 11/30/24 20:00 11/30/24 20:26 15 UNITS Dextrose 50 ml UD PRN IV 11/30/24 19:30 Sodium Chloride 1,000 ml @ 60 mls/hr [id number] IV 11/30/24 19:30 Ondansetron HCl 4 mg Q4HP PRN IV 11/30/24 19:30 Docusate Sodium 100 mg BIDPRN PRN PO 11/30/24 19:30 Morphine Sulfate 2 mg Q4HPRN PRN IV 11/30/24 19:30 Exam Vital Signs Vital Signs Date Time Temp Pulse Resp B/P (MAP) Pulse Ox O2 Delivery O2 Flow Rate FiO2 11/30/24 20:43 97.7 95 18 200/86 (124) 98 97.7 11/30/24 17:19 Room Air* 0 21 General Appearance: Alert, Oriented X3, Cooperative, No acute distress HEENT: Atraumatic, PERRLA, EOMI, Mucous membr. moist/pink Respiratory: Clear to auscultation, Normal air movement Cardiovascular: Regular rate, Normal S1, Normal S2, No murmurs Abdominal: Normal bowel sounds, Soft, No tenderness, No hepatospenomegaly Extremities: No clubbing, No cyanosis, No edema, Normal pulses, No tenderness/swelling Skin: No rashes, No breakdown, No significant lesion Neuro: Normal speech, Normal tone, Sensation intact, Cranial nerves 3-12 NL, Reflexes 2+, Other (Headache) Psych/Mental Status: Mental status NL, Mood NL Labs/Xrays Labs Test 11/30/24 20:17 11/30/24 20:06 11/30/24 16:50 Range/Units POC Glucose 391 H 70-106 mg/dl Sodium Level 137 136-145 mmol/L Potassium Level 4.3 3.5-5.1 mmol/L Chloride Level 99 98-107 mmol/L Carbon Dioxide Level 28 20-31 mmol/L Anion Gap 10 5-15 Blood Urea Nitrogen 43 H 9-23 mg/dL Creatinine 1.88 H 0.550-1.02 mg/dL Glomerular Filtration Rate Calc 31 >90 mL/min BUN/Creatinine Ratio 22.9 H 10.0-20.0 Serum Glucose 368 H 74-106 mg/dL Calcium Level 10.7 H 8.7-10.4 mg/dL Total Bilirubin 0.5 0.2-1.0 mg/dL Aspartate Amino Transferase (AST) 15 13-40 U/L Alanine Aminotransferase (ALT) 30 7-40 U/L Alkaline Phosphatase 133 H 46-116 U/L Total Protein 7.9 5.7-8.2 g/dL Albumin 5.2 H 3.2-4.8 g/dL White Blood Count 5.2 4.4-10.8 10^3/uL Red Blood Count 4.62 4.0-5.20 10^6/uL Hemoglobin 12.9 12.2-16.2 g/dL Hematocrit 39.1 36.0-46.0 % Mean Corpuscular Volume 84.5 80.0-100.0 fL Mean Corpuscular Hemoglobin 28.0 28.0-32.0 pg Mean Corpuscular Hemoglobin Concent 33.1 32.0-36.0 g/dL Red Cell Distribution Width 14.7 H 11.8-14.3 % Platelet Count 248 140-450 10^3/uL Mean Platelet Volume 9.5 6.9-10.8 fL Neutrophils (%) (Auto) 62.1 37.0-80.0 % Lymphocytes (%) (Auto) 25.7 10.0-50.0 % Monocytes (%) (Auto) 12.1 H 0.0-12.0 % Eosinophils (%) (Auto) 0.0 0.0-7.0 % Basophils (%) (Auto) 0.1 0.0-2.0 % Neutrophils # (Auto) 3.3 1.6-8.6 10 ^3/uL Lymphocytes # (Auto) 1.3 0.4-5.4 10 ^3/uL Monocytes # (Auto) 0.6 0-1.3 10 ^3/uL Eosinophils # (Auto) 0 0-0.8 10 ^3/uL Basophils # (Auto) 0 0-0.2 10 ^3/uL Nucleated Red Blood Cells 0.0 % Erythrocyte Sedimentation Rate 12 0-20 mm/hr Lactic Acid Level 1.7 0.4-2.0 mmol/L C-Reactive Protein High Sensitivity 0.26 <1.0 mg/dL PATIENT: ROMEO CHOWDARY ACCT: [id number] UNIT: [id number] : 1970 LOC: ER ROOM / BED: / AGE / SEX: 53 / F ADM STATUS: REG ER SERVICE 02 ORDERING PHYSICIAN: HOMA ROWAN DO PROCEDURE(s): IAC W - INTERNAL AUDITORY CANAL WITH REASON: r ear pain/discharge h/o mastoiditis. ORDER NUMBER(s): [id number], ACCESSION NUMBER(s): [id number] INDICATION: r ear pain/discharge h/o mastoiditis. EXAM DATE: 11/30/2024 09:12 PM COMPARISON: 03/26/2024 TECHNIQUE: CT of the IAC without intravenous contrast. RADIATION DOSE: CTDIvol: 74.57 mGy, DLP: 880.2 mGy*cm FINDINGS: Right: Redemonstration of postsurgical changes of canal wall up mastoidectomy with air fluid level within the right mastoid area of postsurgical changes. There appears to be postsurgical changes of the right internal auditory canal with postsurgical changes of the semicircular canals and retroauricular cranioplasty. There is opacification of the remaining mastoid air cells. Partial opacification of the right middle ear. There is mucosal thickening of the external auditory canal with thickening of the right tympanic membrane. There is limited evaluati on of the middle ear ossicles. There is dehiscence of the sigmoid plate. Left: The external auditory canal appears intact. The middle ear cavity is clear. The ossicular chain appears intact. The facial nerve describes a normal course. No inner ear abnormality is identified. The tegmen appears intact. The semicircular canals appear covered by bone. The mastoid air cells are well aerated and pneumatized. Minimal mucoperiosteal thickening of the left maxillary sinus with bubbly secretion within the left sphenoid sinus. No enhancing masses are visualized within the partially visualized brain. IMPRESSION: Redemonstration of postsurgical changes of the right mastoid, and inner ear with air-fluid levels within the right mastoid and opacification of the remainder of the right mastoid air cells. There is interval development of partial opacification of the right middle ear. Findings are consistent with otomastoiditis. ORDERING PHYSICIAN: HOMA ROWAN DO PROCEDURE(s): HDWCT - HEAD CONTRAST ONLY REASON: R ear pain, discharge, headache ORDER NUMBER(s): [id number], ACCESSION NUMBER(s): [id number] EXAM: CT HEAD CONTRAST ONLY INDICATION: R ear pain, discharge, headache TECHNIQUE: CT of the head without intravenous contrast. Radiation Dose Information: CT Dose: CTDI volume is 55.75 mGy. Dose-length product is 987.22 mGy*cm Omnipaque 300: 50 mL The dose indicators for CT are the volume Computed Tomography (CT) Dose Index (CTDIvol) and the Dose Length Product (DLP), and are measured in units of mGy and mGy-cm, respectively. These indicators are not patient dose, but values generated from the CT scanner acquisition factors. The report includes radiation exposure data for exposures received during this examination. COMPARISON: CT HEAD WITHOUT CONTRAST on DOS: 03/26/24 FINDINGS: There is no evidence of acute intracranial hemorrhage, extra-axial collection, mass effect, midline shift, herniation or hydrocephalus. The ventricles, sulci and cisterns are age appropriate. The farris-white differentiation is intact. Patchy periventricular and subcortical white matter hypoattenuation is nonspecific but may be related to small vessel ischemic disease. The visualized paranasal sinuses and postop changes right mastoids with collection of gas and fluid. This appears unchanged from 03/26/2024. There appears to be closure device over the osteotomy site. Findings of air-fluid level or unchanged also from MRI 03/28/2024. The surrounding soft tissues and osseous structures are unremarkable. IMPRESSION: 1. Right mastoidectomy. Air-fluid level within surgical site. These findings are unchanged from 03/26/2024 and 03/28/2024. Correlated for expected changes in surgical site versus possible infection. Assessment/Plan Assessment/Plan Right ear pain Infection of right ear Hypertensive urgency Acute renal insufficiency Mastoiditis of right side Diabetes mellitus with hyperglycemia Plan 1. Admit to telemetry unit 2. Breathing treatment 3. Pain control management 4. IV antibiotic management 5. Management of fluids and electrolytes 6. Consultation for ENT 7. Diagnostic test head CT 8. DVT prophylaxis-on SCDs 9. Repeat labs CBC, CMP in a.m. 10. Home medication reviewed and reconciled 11. Continue with current medical management 12. Treatment plan discussed with patient and RN. Patient will be transferred for higher level of care. Plan discussed with: Patient, Other (RN) My Orders Orders - GENIE MELGOZA DNP Procedure Category Date Status Time Aspirin Tablet PHA 12/01/24 In Process 10:00 Ibuprofen Tablet PHA 11/30/24 In Process (Motrin Tablet) 19:30 Atorvastatin (Lipitor) PHA 11/30/24 In Process 22:00 Metoprolol Tartrate PHA 11/30/24 In Process Tablet (Lopressor Ta 22:00 Hydralazine Injection PHA 11/30/24 In Process (Apresoline Inject 19:30 Consistent DIET 12/01/24 Transmitted Carb(Ccho)Diabetes Breakfast Glucose Blood PHA 11/30/24 In Process (Accu-Chek Comfort 20:00 Insulin R (Human) PHA 11/30/24 In Process (Insulin R) 20:00 Dextrose 50% Syringe PHA 11/30/24 In Process 19:30 Allergies TOMASA 11/30/24 In Process 19:29 Code Status CODE 11/30/24 Transmitted 19:29 Sodium Chloride 0.9% PHA 11/30/24 In Process 19:30 Oxygen Per Hour RT 11/30/24 Transmitted 19:29 Ondansetron Hcl PHA 11/30/24 In Process (Zofran) 19:30 Docusate Sodium PHA 11/30/24 In Process Capsule (Colace 19:30 Complete Blood Count LAB 12/01/24 Verified 04:00 Comprehensive LAB 12/01/24 Verified Metabolic Panel 04:00 Condition: Serious TOMASA 11/30/24 In Process 19:29 Bedrest With Bathroom TOMASA 11/30/24 In Process Privileg 19:29 Morphine Sulfate PHA 11/30/24 In Process Injection 19:30 Sequential TOMASA 11/30/24 In Process Compression Device Problem List: (1) Right ear pain (2) Hypertensive urgency (3) Infection of right ear (4) Acute renal insufficiency (5) Mastoiditis of right side (6) Diabetes mellitus with hyperglycemia Date of Service: Nov 30, 2024 Billing Provider: GENIE MELGOZA DNP Common Visit Codes: [id number] INP/OBS CARE (HIGH) GENIE MELGOZA DNP Nov 30, 2024 21:24
[2024-11-30] MEDS ORDERED: NITROGLYCERIN 0.4 MG SL TAB SL PRN (21:30)
--- NOTE | 2024-11-30 21:53 | DVH ---
EXAM: CT HEAD CONTRAST ONLY INDICATION: R ear pain, discharge, headache TECHNIQUE: CT of the head without intravenous contrast. Radiation Dose Information: CT Dose: CTDI volume is 55.75 mGy. Dose-length product is 987.22 mGy*cm Omnipaque 300: 50 mL The dose indicators for CT are the volume Computed Tomography (CT) Dose Index (CTDIvol) and the Dose Length Product (DLP), and are measured in units of mGy and mGy-cm, respectively. These indicators are not patient dose, but values generated from the CT scanner acquisition factors. The report includes radiation exposure data for exposures received during this examination. COMPARISON: CT HEAD WITHOUT CONTRAST on DOS: 03/26/24 FINDINGS: There is no evidence of acute intracranial hemorrhage, extra-axial collection, mass effect, midline s hift, herniation or hydrocephalus. The ventricles, sulci and cisterns are age appropriate. The farris-white differentiation is intact. Patchy periventricular and subcortical white matter hypoattenuation is nonspecific but may be related to small vessel ischemic disease. The visualized paranasal sinuses and postop changes right mastoids with collection of gas and fluid. This appears unchanged from 03/26/2024. There appears to be closure device over the osteotomy site. Findings of air-fluid level or unchanged also from MRI 03/28/2024. The surrounding soft tissues and osseous structures are unremarkable. IMPRESSION: 1. Right mastoidectomy. Air-fluid level within surgical site. These findings are unchanged from 03/26 and 03/28/2024. Correlated for expected changes in surgical site versus possible infection.
--- NOTE | 2024-11-30 22:05 | DVH ---
INDICATION: r ear pain/discharge h/o mastoiditis. EXAM DATE: 11/30/2024 09:12 PM COMPARISON: 03/26/2024 TECHNIQUE: CT of the IAC without intravenous contrast. RADIATION DOSE: CTDIvol: 74.57 mGy, DLP: 880.2 mGy*cm FINDINGS: Right: Redemonstration of postsurgical changes of canal wall up mastoidectomy with air fluid level within t he right mastoid area of postsurgical changes . There appears to be postsurgical changes of the right internal auditory canal with postsurgical changes of the semicircular canals and retroauricular cran ioplasty. There is opacification of the remaining mastoid air cells. Partial opacification of the rig ht middle ear. There is mucosal thickening of the external auditory canal with thickening of the righ t tympanic membrane. There is limited evaluation of the middle ear ossicles. There is dehiscence of t he sigmoid plate. Left: The external auditory canal appears intact. The middle ear cavity is clear. The ossicular chain hasmukh ears intact. The facial nerve describes a normal course. No inner ear abnormality is identified. T he tegmen appears intact. The semicircular canals appear covered by bone. The mastoid air cells are well aerated and pneumatized. Minimal mucoperiosteal thickening of the left maxillary sinus with bubbly secretion within the left s phenoid sinus. No enhancing masses are visualized within the partially visualized brain. IMPRESSION: Redemonstration of postsurgical changes of the right mastoid, and inner ear with air-fluid levels wit hin the right mastoid and opacification of the remainder of the right mastoid air cells. There is int erval development of partial opacification of the right middle ear. Findings are consistent with ot omastoiditis.
[2024-11-30 23:51] VITALS: BP 139/69; PULSE 106; RESP 16; TEMP 97.9; O2SAT 100
[2024-12-01] VITALS (8 sets, daily range): BP systolic 124–167; BP diastolic 55–86; PULSE 70–106; RESP 14–20; TEMP 97.8–98.5; O2SAT 95–100
[2024-12-01] MEDS ORDERED: EZET10TA22 PO (00:55)
[2024-12-01] MEDS ORDERED: INSLANTI SC (00:55)
[2024-12-01] MEDS ORDERED: INSLISPI SC (00:55)
[2024-12-01] MEDS: ATORVASTATIN 20 MG TAB PO SCH (01:13)
[2024-12-01] MEDS: METOPROLOL TARTRATE 50 MG TAB PO SCH (01:14)
[2024-12-01] MEDS: SODIUM CHLORIDE 0.9% 1,000 ML IV SCH (01:15)
[2024-12-01] MEDS: VANCOMYCIN 1.5GM/250ML 250 ML IV ONE (01:42)
[2024-12-01] MEDS: PIPERACILLIN-TAZOB 3.375GM 100 ML IV SCH (04:07)
[2024-12-01 04:14] LABS: Hematocrit 35.4 % (36.0-46.0); Hemoglobin 11.8 g/dL (12.2-16.2); Mean Corpuscular Hemoglobin 28.2 pg (28.0-32.0); Mean Corpuscular Hgb Conc. 33.5 g/dL (32.0-36.0); Mean Corpuscular Volume 84.2 fL (80.0-100.0); Platelet Count (auto) 234 10^3/uL (140-450); White Blood Cell 6.2 10^3/uL (4.4-10.8)
[2024-12-01 04:41] LABS: Band Neutrophils % (manual) 0; Basophils % (manual) 0 (0.0-2.0); Blast Cells 0; Eosinophils % (manual) 0 (0-7); Metamyelocytes % 0; Myelocytes % 0; Promyelocytes % 0; Reactive Lymphocytes 0
[2024-12-01 04:44] LABS: Alanine Aminotransferase 24 U/L (7-40); Albumin 4.4 g/dL (3.2-4.8); Alkaline Phosphatase 107 U/L (46-116); Anion Gap 12 (5-15); BUN/Creatinine Ratio 25.7 (10.0-20.0); Calcium 10.3 mg/dL (8.7-10.4); Carbon Dioxide 25 mmol/L (20-31); Chloride 105 mmol/L (98-107); Potassium 3.9 mmol/L (3.5-5.1); Sodium 142 mmol/L (136-145); Total Protein 6.7 g/dL (5.7-8.2)
[2024-12-01 04:49] LABS: Aspartate Aminotransferase 12 U/L (13-40); Bilirubin, Total 0.2 mg/dL (0.2-1.0); Blood Urea Nitrogen 38 mg/dL (9-23); Glucose 175 mg/dL (74-106)
--- NOTE | 2024-12-01 06:00 | ED.PDOC ---
ADDENDUM ADDENDUM ADDENDUM Discussed the patient in length, including CT-findings, with hospitalist at 0115, confirming on reviewing CT-findings, himself, and then, at the time, he was comfortable with admitting the patient for aggressive IV antibiotic treatment. Later, at 0540, he called back, stating cannot admit the patient on the grounds of needing ENT consultation. I spoke with ER williams Pace and discussed the case with him. He will arrange for transfer the patient for higher level of care for ENT consultation. I personally scribed for HOMA ROWAN DO ([email or web address]) on 12/01/24 at 06:00. Electronically submitted by Lino Hammer ([email or web address]). HOMA ROWAN DO Dec 01, 2024 06:00
[2024-12-01 06:49] LABS: Lymphocytes % (manual) 34 (10.0-50.0); Monocytes % (manual) 5 (0-12); Platelet Estimate Adequate
[2024-12-01] MEDS: ASPirin 81 mg TAB PO SCH (09:27)
--- NOTE | 2024-12-01 12:45 | DVHPN2 ---
Subjective The patient is seen and examined at bedside. Still have severe right ear pain. Reviewed: Care Plan, H&P, Labs, Medications, Previous Orders, Radiology Changes from previous H/P or p: No Changes Eyes: No Pain, No Vision change, No Conjunctivae inflammation, No Eyelid inflammation, No Other, No Redness ENT: Ear pain; No Ear discharge, No Nose pain, No Nose discharge, No Nose congestion, No Mouth pain, No Mouth swelling, No Throat pain, No Throat swelling, No Other Cardiovascular: No Chest Pain, No Palpitations, No Orthopnea, No Paroxysmal Noc. Dyspnea, No Edema, No Lt Headedness, No Other Respiratory: No Cough, No Dry, No Shortness of breath, No SOB with excertion, No Wheezing, No Hemoptysis, No Pleuritic Pain, No Sputum, No Other Gastrointestinal: No Nausea, No Vomiting, No Abdominal Pain, No Diarrhea, No Constipation, No Melena, No Hematochezia, No Other Genitourinary: No Dysuria, No Frequency, No Incontinence, No Hematuria, No Retention, No Other Musculoskeletal: No other, No neck pain, No shoulder pain, No arm pain, No back pain, No hand pain, No leg pain, No foot pain Skin: No Rash, No Lesions, No Jaundice, No Bruising, No Other Objective Vitals Vital Signs Date Time Temp Pulse Resp B/P (MAP) Pulse Ox O2 Delivery O2 Flow Rate FiO2 12/01/24 11:26 Room Air* 0 21 12/01/24 10:30 74 141/65 12/01/24 09:00 98.5 19 95 98.5 General Appearance: Alert, Oriented X3, Cooperative, mild distress (Secondary to ear pain) HEENT: Atraumatic, PERRLA, EOMI, Mucous membr. moist/pink Neck: Supple Lungs: Clear to auscultation, Normal air movement Cardiovascular: Regular rate, Normal S1, Normal S2, No murmurs, Gallops, Rubs Abdomen: Normal bowel sounds, Soft, No tenderness Neuro: Cranial nerves 3-12 NL Psych/Mental Status: Mental status NL Medications Current Medications Medications Dose Ordered Sig/Dinorah Route Start Time Stop Time Status Last Admin Dose Admin Vancomycin HCl 0 ml @ 0 mls/hr UD IV 11/30/24 16:45 UNV Aspirin 81 mg DAILY PO 12/01/24 10:00 12/01/24 09:27 81 MG Ibuprofen 600 mg Q6HP PRN PO 11/30/24 19:30 Atorvastatin Calcium 10 mg HS PO 11/30/24 22:00 12/01/24 01:13 10 MG Metoprolol Tartrate 50 mg BID PO 11/30/24 22:00 12/01/24 09:27 50 MG Hydralazine HCl 10 mg Q6HP PRN IV 11/30/24 19:30 11/30/24 20:36 10 MG Diagnostic Test (Pha) 1 strip IQ4HR 11/30/24 20:00 12/01/24 11:29 1 STRIP Insulin Human Regular IQ4HR SC 11/30/24 20:00 12/01/24 11:30 6 UNITS Dextrose 50 ml UD PRN IV 11/30/24 19:30 Sodium Chloride 1,000 ml @ 60 mls/hr [id number] IV 11/30/24 19:30 12/01/24 01:15 60 MLS/HR Ondansetron HCl 4 mg Q4HP PRN IV 11/30/24 19:30 Docusate Sodium 100 mg BIDPRN PRN PO 11/30/24 19:30 Morphine Sulfate 2 mg Q4HPRN PRN IV 11/30/24 19:30 Nitroglycerin 0.4 mg Q5MINP PRN SL 11/30/24 21:30 Morphine Sulfate 2 mg Q30M PRN IV 11/30/24 21:30 Piperacillin Sod/ Tazobactam Sod 100 ml @ 25 mls/hr Q12H IV 12/01/24 05:00 12/01/24 04:07 25 MLS/HR Laboratory Results Laboratory Tests 12/01/24 03:17 Chemistry Test 11/30/24 16:50 11/30/24 20:06 12/01/24 03:17 Albumin 5.3 g/dL (3.2-4.8) H 5.2 g/dL (3.2-4.8) H 4.4 g/dL (3.2-4.8) Calcium Level 10.9 mg/dL (8.7-10.4) H 10.7 mg/dL (8.7-10.4) H 10.3 mg/dL (8.7-10.4) Total Protein 8.0 g/dL (5.7-8.2) 7.9 g/dL (5.7-8.2) 6.7 g/dL (5.7-8.2) LFT Test 11/30/24 16:50 11/30/24 20:06 12/01/24 03:17 Alanine Aminotransferase (ALT) 32 U/L (7-40) 30 U/L (7-40) 24 U/L (7-40) Alkaline Phosphatase 136 U/L (46-116) H 133 U/L (46-116) H 107 U/L (46-116) Aspartate Amino Transferase (AST) 18 U/L (13-40) 15 U/L (13-40) 12 U/L (13-40) L Total Bilirubin 0.4 mg/dL (0.2-1.0) 0.5 mg/dL (0.2-1.0) 0.2 mg/dL (0.2-1.0) Labs and/or images reviewed: Labs reviewed by me Assessment/Plan Assessment/Plan Infection of right ear Hypertensive urgency Acute renal insufficiency Mastoiditis of right side Diabetes mellitus with hyperglycemia Continuing current management. Continuing with IV antibiotic Zosyn. Continuing with pain medication. Sliding scale insulin This medical document was created using an electronic medical record system with [employer] direct computerized dictation system. Although this document has been carefully reviewed, there may still be some phonetic and typographical errors. These areas are purely typographical due to imperfections of the software programs, and do not reflect any compromise in the patient's medical care. Plan discussed with: Patient Date of Service: Dec 01, 2024 Billing Provider: GREGORY BOLTON MD Common Visit Codes: [id number] INP/OBS CARE(HIGH) GREGORY BOLTON MD Dec 01, 2024 12:45
[2024-12-01] MEDS: IBUPROFEN 600 MG TAB PO PRN (17:33)
[2024-12-01] MEDS: VANCOMYCIN 1.25GM/250ML 250 ML IV ONE (23:03)
[2024-12-02] VITALS (7 sets, daily range): BP systolic 105–152; BP diastolic 38–78; PULSE 81–95; RESP 18–19; TEMP 97.4–98.3; O2SAT 95–99
[2024-12-02 06:38] LABS: Carbon Dioxide 24 mmol/L (20-31)
[2024-12-02 06:39] LABS: Anion Gap 11 (5-15); Potassium 4.6 mmol/L (3.5-5.1)
[2024-12-02 06:41] LABS: Calcium 10.5 mg/dL (8.7-10.4); Chloride 110 mmol/L (98-107); Sodium 145 mmol/L (136-145)
[2024-12-02 06:45] LABS: BUN/Creatinine Ratio 21.6 (10.0-20.0)
[2024-12-02 06:54] LABS: Blood Urea Nitrogen 27 mg/dL (9-23); Glucose 140 mg/dL (74-106)
[2024-12-02 07:38] LABS: Basophils # (auto) 0 10 ^3/uL (0-0.2); Basophils % (auto) 0.2 % (0.0-2.0); Eosinophils # (auto) 0 10 ^3/uL (0-0.8); Eosinophils % (auto) 0.8 % (0.0-7.0); Hematocrit 37.9 % (36.0-46.0); Hemoglobin 12.2 g/dL (12.2-16.2); Lymphocytes # (auto) 1.6 10 ^3/uL (0.4-5.4); Lymphocytes % (auto) 37.1 % (10.0-50.0); Mean Corpuscular Hemoglobin 27.4 pg (28.0-32.0); Mean Corpuscular Hgb Conc. 32.1 g/dL (32.0-36.0); Mean Corpuscular Volume 85.4 fL (80.0-100.0); Monocytes # (auto) 0.4 10 ^3/uL (0-1.3); Monocytes % (auto) 9.8 % (0.0-12.0); Neutrophils # (auto) 2.3 10 ^3/uL (1.6-8.6); Neutrophils % (auto) 52.1 % (37.0-80.0); Nucleated Red Blood Cells % 0.2 %; Platelet Count (auto) 233 10^3/uL (140-450); Red Blood Cells 4.44 10^6/uL (4.0-5.20); Red Cell Distribution Width 15.4 % (11.8-14.3); White Blood Cell 4.3 10^3/uL (4.4-10.8)
--- NOTE | 2024-12-02 15:30 | DVHPN2 ---
Subjective Patient was states that her ear drainage has improved. Continues to have dizziness and earache Reviewed: Care Plan, H&P, Labs, Medications, Previous Orders, Radiology Changes from previous H/P or p: No Changes Eyes: No Pain, No Vision change, No Conjunctivae inflammation, No Eyelid inflammation, No Other, No Redness ENT: Ear pain; No Ear discharge, No Nose pain, No Nose discharge, No Nose congestion, No Mouth pain, No Mouth swelling, No Throat pain, No Throat swelling, No Other Cardiovascular: No Chest Pain, No Palpitations, No Orthopnea, No Paroxysmal Noc. Dyspnea, No Edema, No Lt Headedness, No Other Respiratory: No Cough, No Dry, No Shortness of breath, No SOB with excertion, No Wheezing, No Hemoptysis, No Pleuritic Pain, No Sputum, No Other Gastrointestinal: No Nausea, No Vomiting, No Abdominal Pain, No Diarrhea, No Constipation, No Melena, No Hematochezia, No Other Genitourinary: No Dysuria, No Frequency, No Incontinence, No Hematuria, No Retention, No Other Musculoskeletal: No other, No neck pain, No shoulder pain, No arm pain, No back pain, No hand pain, No leg pain, No foot pain Skin: No Rash, No Lesions, No Jaundice, No Bruising, No Other Objective Vitals Vital Signs Date Time Temp Pulse Resp B/P (MAP) Pulse Ox O2 Delivery O2 Flow Rate FiO2 12/02/24 09:57 80 130/68 12/02/24 08:05 Room Air* 0 21 12/02/24 08:00 98.0 18 98 98.0 Intake/Output Intake and Output 12/02/24 06:59 Intake Total 1150 ml Output Total 500 ml Balance 650 ml Intake Oral 800 ml IV Total 350 ml Output Urine Total 500 ml # Voids 2 # Bowel Movements 1 General Appearance: Alert, Oriented X3, Cooperative, mild distress (Secondary to ear pain) HEENT: Atraumatic, PERRLA, EOMI, Mucous membr. moist/pink Neck: Supple Lungs: Clear to auscultation, Normal air movement Cardiovascular: Regular rate, Normal S1, Normal S2, No murmurs, Gallops, Rubs Abdomen: Normal bowel sounds, Soft, No tenderness Neuro: Cranial nerves 3-12 NL Skin: Dry, Intact Psych/Mental Status: Mental status NL Medications Current Medications Medications Dose Ordered Sig/Dinorah Route Start Time Stop Time Status Last Admin Dose Admin Vancomycin HCl 0 ml @ 0 mls/hr UD IV 11/30/24 16:45 Aspirin 81 mg DAILY PO 12/01/24 10:00 12/02/24 08:57 81 MG Ibuprofen 600 mg Q6HP PRN PO 11/30/24 19:30 12/01/24 17:33 600 MG Atorvastatin Calcium 10 mg HS PO 11/30/24 22:00 12/01/24 20:19 10 MG Metoprolol Tartrate 50 mg BID PO 11/30/24 22:00 12/02/24 08:57 50 MG Hydralazine HCl 10 mg Q6HP PRN IV 11/30/24 19:30 12/01/24 13:17 10 MG Diagnostic Test (Pha) 1 strip IQ4HR 11/30/24 20:00 12/02/24 11:33 1 STRIP Insulin Human Regular IQ4HR SC 11/30/24 20:00 12/02/24 11:39 6 UNITS Dextrose 50 ml UD PRN IV 11/30/24 19:30 Sodium Chloride 1,000 ml @ 60 mls/hr [id number] IV 11/30/24 19:30 12/01/24 01:15 60 MLS/HR Ondansetron HCl 4 mg Q4HP PRN IV 11/30/24 19:30 Docusate Sodium 100 mg BIDPRN PRN PO 11/30/24 19:30 Morphine Sulfate 2 mg Q4HPRN PRN IV 11/30/24 19:30 Nitroglycerin 0.4 mg Q5MINP PRN SL 11/30/24 21:30 Morphine Sulfate 2 mg Q30M PRN IV 11/30/24 21:30 Vancomycin HCl 250 ml @ 200 mls/hr Q24H IV 12/02/24 23:00 Laboratory Results Laboratory Tests 12/02/24 05:25 Chemistry Test 12/02/24 05:25 Calcium Level 10.5 mg/dL (8.7-10.4) H Labs and/or images reviewed: Labs reviewed by me, Image(s) reviewed by me Assessment/Plan Assessment/Plan Impression: -otomastoiditis -diabetes mellitus -History of right acoustic neuroma status post surgery and radiation therapy -repeat ear infection with mastoiditis -primary hypertension Plan: -continue vancomycin, change Zosyn to ceftriaxone -MRI of the auditory ear canal with a with count contrast -continue IV hydration -regular insulin sliding scale -pain management -further course of care per findings of MRI Total time spent with patient discussing and formulating plan of care: 35 minutes. This medical document was created using an electronic medical record system with [employer] dictation system. Although this document has been carefully reviewed, there may still be some phonetic and typographical errors. These areas are purely typographical due to imperfections of the software programs, and do not reflect any compromise in the patient's medical care. Plan discussed with: Patient, Other (RN) My Orders Orders - REGINALD TORRES NP Procedure Category Date Status Time Basic Metabolic Panel LAB 12/03/24 Verified 04:00 Transfer Orders XFER 12/02/24 Transmitted 14:01 Brain Head Wo W MRI 12/02/24 Logged Contrast 13:55 Date of Service: Dec 02, 2024 Billing Provider: REGINALD TORRES NP Common Visit Codes: [id number] INP/OBS CARE(HIGH) REGINALD TORRES NP Dec 02, 2024 15:30
[2024-12-02] MEDS: IOHEXOL 300 MG/ML 100ML BOTTLE IJ ONE (16:08)
--- NOTE | 2024-12-02 16:14 | DVH ---
MRI BRAIN WITH CONTRAST CLINICAL HISTORY: HX OF NEUROMA SURG, NOW PAIN R/O OSTEIOMASTIODIS TECHNIQUE: Multiplanar multisequence images of the brain were obtained prior to and following intravenous admini stration of contrast. 10/10 cc of gadavist contrast from a prefilled syringe was administered intravenously. Comparison: MRI BRAIN HEAD WO CONTRAST on DOS: 03/28/24 FINDINGS: Redemonstrated are postsurgical changes related to right mastoidectomy. There is fluid in the right m astoid surgical cavity. There are also postsurgical changes involving the right internal auditory can al. There is encephalomalacia and gliosis along the anterior right cerebellum in this region. There is a 4 x 8 mm enhancing nodule along the anterior margins in the right porous acousticus region. Th ere is no evidence of a left IAC or CP angle lesion. There is no restricted diffusion. There are minimal chronic microvascular white matter ischemic king es. There is no pathologic brain enhancement. There is no evidence of hemorrhage, mass effect or midl ine shift. There is no hydrocephalus or extra-axial fluid collection. The visualized intracranial vas culature demonstrates appropriate flow-voids. The midline structures appear unremarkable. The cranioc ervical junction is within normal limits. The calvarium demonstrates normal marrow signal. The parana tamara sinuses are clear. IMPRESSION: 1. There are postsurgical changes related to right mastoidectomy. There is fluid in the right mastoid surgical cavity. 2. There are postsurgical changes involving the right internal auditory canal. There is a 4 x 8 mm en hancing nodule along the anterior margin in the right porous acusticus region. This may represent res idual neuroma. Comparison with any available prior postcontrast MR brain studies is recommended. HS:Y
[2024-12-02] MEDS: GADOTERATE MEG 10 MMOL/20ml INJ (0.5MMOL/ml) IV ONE (18:59)
[2024-12-02] MEDS: VANCOMYCIN 1.25GM/250ML 250 ML IV SCH (21:37)
[2024-12-03 01:00] VITALS: BP 156/64; PULSE 80; RESP 15; TEMP 97.5; O2SAT 98
[2024-12-03 05:00] VITALS: BP 148/71; PULSE 86; RESP 17; TEMP 98.2; O2SAT 96
[2024-12-03 07:36] LABS: Basophils # (auto) 0 10 ^3/uL (0-0.2); Basophils % (auto) 0.1 % (0.0-2.0); Eosinophils # (auto) 0.1 10 ^3/uL (0-0.8); Eosinophils % (auto) 2.1 % (0.0-7.0); Hematocrit 38.9 % (36.0-46.0); Hemoglobin 12.9 g/dL (12.2-16.2); Lymphocytes # (auto) 1.3 10 ^3/uL (0.4-5.4); Mean Corpuscular Hgb Conc. 33.1 g/dL (32.0-36.0); Mean Corpuscular Volume 84.7 fL (80.0-100.0); Monocytes # (auto) 0.4 10 ^3/uL (0-1.3); Monocytes % (auto) 8.6 % (0.0-12.0); Neutrophils # (auto) 2.3 10 ^3/uL (1.6-8.6); Neutrophils % (auto) 56.2 % (37.0-80.0); Nucleated Red Blood Cells % 0.1 %; Platelet Count (auto) 231 10^3/uL (140-450); Red Blood Cells 4.59 10^6/uL (4.0-5.20); Red Cell Distribution Width 14.8 % (11.8-14.3); White Blood Cell 4.1 10^3/uL (4.4-10.8)
[2024-12-03 08:00] VITALS: PULSE 84; RESP 17; O2SAT 95
[2024-12-03 08:30] LABS: Sodium 142 mmol/L (136-145)
[2024-12-03 08:31] LABS: Anion Gap 9 (5-15); Carbon Dioxide 24 mmol/L (20-31)
[2024-12-03 08:32] LABS: Calcium 10.3 mg/dL (8.7-10.4)
[2024-12-03 08:36] LABS: Blood Urea Nitrogen 22 mg/dL (9-23); Chloride 109 mmol/L (98-107); Glucose 194 mg/dL (74-106)
[2024-12-03 08:42] VITALS: BP_SYST 116; BP_SYST 143; BP_DIAS 65; BP_DIAS 75; PULSE 84; PULSE 93; RESP 14; RESP 17; TEMP 98.2; O2SAT 94; O2SAT 95
[2024-12-03] MEDS: cefTRIAXone 2GM/50ML D5W 50 ML IV SCH (09:49)
[2024-12-03 12:29] VITALS: BP 145/71; PULSE 76; RESP 17; TEMP 98.1; O2SAT 97
[2024-12-03] MEDS ORDERED: AUG875T PO (13:44)
[2024-12-03] MEDS ORDERED: CIPR1SUS8 OT (13:44)
--- NOTE | 2024-12-03 13:51 | DVHDS2 ---
Discharge Summary Date of Admission Nov 30, 2024 at 21:22 Date of Discharge: Dec 03, 2024 Admitting Diagnosis Infection of right ear Labs/Diagnostic Data: Laboratory Results Test 12/03/24 11:28 12/03/24 06:18 12/02/24 05:25 12/01/24 03:17 POC Glucose 229 mg/dl (70-106) White Blood Count 4.1 10^3/uL (4.4-10.8) Red Blood Count 4.59 10^6/uL (4.0-5.20) Hemoglobin 12.9 g/dL (12.2-16.2) Hematocrit 38.9 % (36.0-46.0) Mean Corpuscular Volume 84.7 fL (80.0-100.0) Mean Corpuscular Hemoglobin 28.0 pg (28.0-32.0) Mean Corpuscular Hemoglobin Concent 33.1 g/dL (32.0-36.0) Red Cell Distribution Width 14.8 % (11.8-14.3) Platelet Count 231 10^3/uL (140-450) Mean Platelet Volume 9.4 fL (6.9-10.8) Neutrophils (%) (Auto) 56.2 % (37.0-80.0) Lymphocytes (%) (Auto) 33.0 % (10.0-50.0) Monocytes (%) (Auto) 8.6 % (0.0-12.0) Eosinophils (%) (Auto) 2.1 % (0.0-7.0) Basophils (%) (Auto) 0.1 % (0.0-2.0) Neutrophils # (Auto) 2.3 10 ^3/uL (1.6-8.6) Lymphocytes # (Auto) 1.3 10 ^3/uL (0.4-5.4) Monocytes # (Auto) 0.4 10 ^3/uL (0-1.3) Eosinophils # (Auto) 0.1 10 ^3/uL (0-0.8) Basophils # (Auto) 0 10 ^3/uL (0-0.2) Nucleated Red Blood Cells 0.1 % Sodium Level 142 mmol/L (136-145) Potassium Level 4.0 mmol/L (3.5-5.1) Chloride Level 109 mmol/L (98-107) Carbon Dioxide Level 24 mmol/L (20-31) Anion Gap 9 (5-15) Blood Urea Nitrogen 22 mg/dL (9-23) Creatinine 1.10 mg/dL (0.550-1.02) Glomerular Filtration Rate Calc 59 mL/min (>90) BUN/Creatinine Ratio 20.0 (10.0-20.0) Serum Glucose 194 mg/dL (74-106) Calcium Level 10.3 mg/dL (8.7-10.4) Random Vancomycin Level 17.7 ug/mL (5-10) Differential Total Cells Counted 100.0 (100) Neutrophils % (Manual) 61 (37.0-80.0) Band Neutrophils % (Manual) 0 Lymphocytes % (Manual) 34 (10.0-50.0) Monocytes % (Manual) 5 (0-12) Eosinophils % (Manual) 0 (0-7) Basophils % (Manual) 0 (0.0-2.0) Metamyelocytes % (manual) 0 Myelocytes % (Manual) 0 Promyelocytes % (Manual) 0 Blast Cells % (Manual) 0 Reactive Lymphocytes 0 Platelet Estimate Adequate Total Bilirubin 0.2 mg/dL (0.2-1.0) Aspartate Amino Transferase (AST) 12 U/L (13-40) Alanine Aminotransferase (ALT) 24 U/L (7-40) Alkaline Phosphatase 107 U/L (46-116) Total Protein 6.7 g/dL (5.7-8.2) Albumin 4.4 g/dL (3.2-4.8) Test 11/30/24 16:50 Erythrocyte Sedimentation Rate 12 mm/hr (0-20) Lactic Acid Level 1.7 mmol/L (0.4-2.0) C-Reactive Protein High Sensitivity 0.26 mg/dL (<1.0) Other Laboratory Tests 12/03/24 06:18 Brief Hx & Hospital Course: History of Present Illness Patient is a 53-year-old female with multiple past medical history including DM, HLD, hypertension, CKF, and mastoiditis who presented to [facility] ED with complaint of headache for the past 2 days. Patient reports experiencing right pain with discharge, mild headedness, getting worse that prompted this visit. Patient was seen and evaluated in the ED, laboratory data shows WBC 5.2, platelets 248, sodium 135, potassium 4.5, BUN 43, creatinine 2.10, GFR 27, glucose 436, albumin 5.3, blood pressure 189/91 trending down to 148/75, heart rate 90, temperature 98.2 F, O2 saturation 97% on room air. Head CT revealing right mastoidectomy, air-fluid level within surgical site, findings unchanged from 03/26/2024-03/28/2024, correlated for expected changes in surgical site versus possible infection. Internal auditory canal biopsy CT revealing redemonstration of postsurgical changes of the right mastoid and inner ear with air-fluid levels within the right mastoid and opacification of the remainder of the right mastoid cells, there is internal development of partial opacification of the right middle ear consistent with otomastoiditis, recommending ENT evaluation. Patient was started on IV antibiotic regimen Zosyn, please see medication orders section in the computer. On my assessment, patient denies chest pain, no headache, no dizziness, no diaphoresis, no shortness of breaths, no nausea, no vomiting, no fever, no chills. Dr. Ordonez will like patient to be admitted for further evaluation and medical management. Course of hospitalization: Patient had MRI with focus on right ear canal given patient's history of recurrent mastoiditis as well as residual neuroma then has been treated with radiation therapy. Results of the MRI was disclosed to the patient. The patient no longer has drainage from her right ear. Patient was getting treated with vancomycin and Zosyn while in the hospital. Both comorbidities of hypertension and diabetes mellitus are now while under control. Patient will be discharged home with otic drops of ciprofloxacin and dexamethasone as well as oral antibiotic therapy with Augmentin 875 mg. She was instructed to follow up with her PCP as well as follow up with her ENT for re-evaluation of her mastoiditis, possibly requiring surgical intervention. Patient was agreeable with discharge plan. All questions answered. Physical examination General: Alert and Oriented x3. No acute distress. Well-nourished. Eyes: EOMI. Anicteric. HENT: Moist mucous membranes. Lungs: Clear to auscultation bilaterally. No accessory muscle use. Cardiovascular: Regular rate and rhythm. No murmur. No JVD. Abdomen: Soft, non-tender and non-distended. No palpable masses. Extremities: No edema. Non-tender. Skin: No rashes or lesions. Warm. Neurologic: No focal neurological deficits. CN II-XII grossly intact, but not individually tested. Psychiatric: Cooperative. Appropriate mood and affect. Total time spent with patient discussing and formulating plan of care: 35 minutes. This medical document was created using an electronic medical record system with [employer] dictation system. Although this document has been carefully reviewed, there may still be some phonetic and typographical errors. These areas are purely typographical due to imperfections of the software programs, and do not reflect any compromise in the patient's medical care. Condition at Discharge: Fair Final Diagnosis/Problems List Otomastoiditis Secondary diagnosis: -diabetes mellitus -History of right acoustic neuroma status post surgery and radiation therapy -repeat ear infection with mastoiditis -primary hypertension, accelerated hypertension Discharge Disposition: Home Discharge Instruct/Medications Diet: Consistent carbohydrate, Cardiac 2g Na,low cholest Activity: No Restrictions, As Tolerated Follow Up/Referral: Follow up with PCP Dr. Morillo Recommended to follow up with ENT for re-evaluation of mastoiditis. Patient may require draining Medications: Ciprofloxacin, dexamethasone ear drops, four drops to right ear twice a day times 10 days Augmentin 875 mg p.o. twice a day times 10 days 36 Discharge Statement: "Patient was advised to return to the ER or call 911 if any headaches, dizziness, shortness of breath, chest pain, abdominal pain, bleeding, fevers, or worsening of medical condition. Patient was counseled about treatment plan, medications, possible side effects, patientverbalized understanding. All questions were answered to the best of my ability. This discharge took greater then 30 minutes in planning, reviewing documentation, counseling the patient, and discussing with other team members." ASSESSMENT ASSESSMENT Assessment Otomastoiditis Date of Service: Dec 03, 2024 Billing Provider: REGINALD TORRES NP Common Visit Codes: [id number]/OBS DISCH DAY >30min REGINALD TORRES NP Dec 03, 2024 13:51
[2024-12-03 14:23] VITALS: BP 145/71; PULSE 76; RESP 17; TEMP 98.1; O2SAT 97
== END 2024-12-03 15:30 | disposition home or self-care (01) | DRG 153 ==
LOC: ER 16:04 → OVERFLOW 21:22 → TELE-WESTW 12-01 17:00 → WEST WING 12-02 23:46
PROVIDERS: ADMIT Nurse Practitioner Acute Care; ATTEND Nurse Practitioner Acute Care
DX: H70.91 Unspecified mastoiditis, right ear (principal); E11.65 Type 2 diabetes mellitus with hyperglycemia; N28.9 Disorder of kidney and ureter, unspecified; I16.0 Hypertensive urgency; I10 Essential (primary) hypertension; E78.5 Hyperlipidemia, unspecified; Z88.6 Allergy status to analgesic agent; Z88.5 Allergy status to narcotic agent; Z79.4 Long term (current) use of insulin; Z79.899 Other long term (current) drug therapy; Z79.2 Long term (current) use of antibiotics; Z79.82 Long term (current) use of aspirin; Z92.3 Personal history of irradiation
CPT/HCPCS: 36415; 70460; 70481; 70553; 80048; 80053; 80202; 82962; 83605; 85007; 85025; 85027; 85652; 86141; 96365; G0378; J1815; J2543

== ENCOUNTER → 2025-01-01 | Outpatient (CLI) | payer BC ==
[~2025-01-01] MED LIST changes: -ASPI-543 PO; +CIPR1SUS8 OT; +EZET10TA22 PO; -HYDR12.59 PO; +INSLISPI SC; -METF-370 PO; -RANO500T2 PO
[2025-01-01 09:36] LABS: Cholesterol 272 mg/dL (< 200); HDL Cholesterol 67 mg/dL (40-59); LDL Cholesterol 163 mg/dL (< 100); Triglycerides 279 mg/dL (< 150)
== END | disposition home or self-care (01) ==
LOC: LAB 08:40
PROVIDERS: ATTEND Internal Medicine
DX: Z12.11 Encounter for screening for malignant neoplasm of colon (principal); E11.9 Type 2 diabetes mellitus without complications
CPT/HCPCS: 36415; 80061; 83036